=== PATIENT | female | born 1955 | race Caucasian/White ===

== ENCOUNTER → 2017-07-18 08:14 | Outpatient (CLI) | payer MEDICARE, BC | END | disposition home or self-care (01) | LOC: D.RT 08:00 | DX: R06.00 Dyspnea, unspecified (principal) ==

== ENCOUNTER → 2019-04-25 11:04 | Outpatient (CLI) | payer MEDICARE, BC | LOC: D.US 11:00 | PROVIDERS: ATTEND Internal Medicine Hematology & Oncology | DX: E11.9 Type 2 diabetes mellitus without complications (principal); Z86.73 Personal history of transient ischemic attack (TIA), and cerebral infarction without residual deficits ==